=== PATIENT | female | born 1965 | race Caucasian/White ===

== ENCOUNTER 2020-12-10 22:15 | Inpatient (IN) | payer MEDICARE, SELFPAY ==
--- NOTE | ~2020-12-10 | CT_ITS ---
EXAMINATION: CT abdomen pelvis w con DATE: 12/11/2020 00:19 INDICATION: Lower abdominal pain. TECHNIQUE: Computed tomography (CT) of the abdomen and pelvis was performed with 100 mL Omnipaque 350 intravenous contrast. Automated exposure control and iterative reconstruction technique were employe d. The dose-length product was 1430.94 mGy-cm. COMPARISON: CT abdomen and pelvis 07/29/2016 FINDINGS: The visualized portions of the lung bases demonstrate a 3 mm nodule in right middle lobe, l ikely benign. No pleural effusion. The heart size is normal. No pericardial effusion. There is diffus e hepatic steatosis. The gallbladder, spleen, pancreas, and adrenal glands are normal. There is a 1.5 cm cyst in left kidney. There is a 3 mm stone in right kidney. There are 6 mm and 3 mm stones in lef t kidney. There are scattered diverticula in the colon. There is fat stranding around a diverticulum of sigmoid colon with local bowel wall thickening and small intramural abscess, consistent with diver ticulitis. There are no dilated loops of bowel. The appendix is visualized. There are no pathological ly enlarged lymph nodes. There is no free intraperitoneal fluid. There is moderate lower lumbar spond ylosis. IMPRESSION: 1. Acute sigmoid diverticulitis with small intramural abscess that is too small for drainage. No perf oration. 2. Bilateral nonobstructing kidney stones. Reviewed, dictated and finalized at location A. IMPRESSION: 1. Acute sigmoid diverticulitis with small intramural abscess that is too small for drainage. No perforation. 2. Bilateral nonobstructing kidney stones.
[2020-12-10 22:18] VITALS: BP 146/83; PULSE 101; RESP 16; TEMP 36.4; O2SAT 99
[2020-12-10 22:37] LABS: Basophils Absolute Auto 0.1 K/mm3 (0.0-0.1); Basophils Percent Auto 0.8 % (0.2-1.2); Eosinophils Absolute Auto 0.3 K/mm3 (0-0.3); Eosinophils Percent Auto 2.3 % (0-4.4); Hematocrit 45.7 % (37.0-47.0); Hemoglobin 15.3 g/dL (12.0-15.0); Immature Granulocyte Absolute 0.54 K/mm3 (0.00-0.031); Immature Granulocyte Percent A 4.1 % (0-0.5); Lymphocytes Absolute Auto 0.44 K/mm3 (0.9-3.2); Lymphocytes Percent Auto 3.3 % (18.3-44.2); Mean Corpuscular HGB Conc 33.5 g/dl (32-36); Mean Corpuscular Hemoglobin 32.4 pg (26-34); Mean Corpuscular Volume 96.8 fl (80-100); Mean Platelet Volume 10.3 fl (7.4-10.4); Monocytes Absolute Auto 1.3 K/mm3 (0.1-0.6); Monocytes Percent Auto 10.1 % (2.6-8.5); Neutrophils Absolute Auto 10.6 K/mm3 (1.3-6.7); Neutrophils Percent Auto 79.4 % (45.5-73.1); Platelet Count Result 362 k/mm3 (150-375); Red Blood Count 4.72 M/mm3 (4.2-5.4); Red Cell Distribution Width 12.6 % (11.5-14.5); White Blood Count 13.3 K/mm3 (4.5-10.0)
[2020-12-10 22:42] LABS: Add Urine Microscopic? YES; Appearance Urine Cloudy (Clear); Bacteria Urine 2+ /hpf; Bilirubin Urine Negative (Negative); Blood Urine 3+ (Negative); Color Urine Yellow (Yellow); Glucose Urine UA Negative (Negative); Ketones Urine Negative (Negative); Leukocyte Esterase Ur Trace LEU/UL (Negative); Mucus Urine Rare /lpf; Nitrate Urine Negative (Negative); Protein Urine 1+ mg/dL (Negative); RBC Urine >75 /hpf (0-2); Specific Grav Ur 1.012 (1.001-1.035); Squamous Epithelial Cell Urine Few /hpf (Few); Urobilinogen Urine Negative mg/dL (<2.0)
[2020-12-10 22:50] LABS: Alanine Aminotransferase 56 U/L (4-35); Albumin Level 4.5 g/dL (3.5-5.1); Alkaline Phosphatase 106 U/L (38-126); Anion Gap 7 mmol/L (8-16); Aspartate Amino Transferase 49 U/L (14-36); Bilirubin,Total 0.5 mg/dL (0.2-1.3); Blood Urea Nitrogen 15 mg/dL (7-17); Calcium 10.1 mg/dL (8.4-10.2); Carbon Dioxide 33 mmol/L (22-30); Chloride 99 mmol/L (98-107); Estimated CRCL calculation 88 ml/min; Estimated Glomerular Filt Rate > 60; Glucose 132 mg/dL (65-105); Lipase 49 U/L (23-300); Potassium 3.7 mmol/L (3.4-5.0); Sodium 139 mmol/L (137-145)
[2020-12-10 23:58] VITALS: BP 152/99; PULSE 88; RESP 16; O2SAT 100
[2020-12-11] VITALS (9 sets, daily range): BP systolic 117–167; BP diastolic 50–80; PULSE 76–94; RESP 16–20; TEMP 35.5–36.2; O2SAT 93–98; BMI 50.3
--- NOTE | 2020-12-11 00:03 | ED.GENADULT ---
HPI - General Adult General Chief complaint: Abdominal Pain Stated complaint: LOWER ABD PAIN Time Seen by Provider: 12/10/20 23:34 History of Present Illness HPI narrative: Patient is a 54-year-old female who presents ER with lower abdominal pain. Intermittent over the last week. Associated with urinary frequency and discolored urine that is foul smelling. Also reports that she became constipated and took some stool softener. No diarrhea. No fevers or chills or sweats. Has not found any aggravating or alleviating factors. She did try cranberry juice. Reports she cannot reproduce the pain however when it comes on its very uncomfortable. Related Data Allergies Allergy/AdvReac Type Severity Reaction Status Date / Time Penicillins Allergy Mild TAPE Verified 12/10/20 22:16 plastic tape AdvReac Rash Uncoded 12/10/20 22:16 Review of Systems Review of Systems: All systems reviewed & are unremarkable except as noted in HPI and below Constitutional: Constitutional: Denies chills, Denies fever(s) and Denies weakness Cardiovascular: Cardiovascular: Denies chest pain and Denies rapid heart rate Respiratory: Respiratory: Denies cough and Denies dyspnea Gastrointestinal: Gastrointestinal: Reports abdominal pain, Denies bloating, Reports constipation, Denies nausea and Denies vomiting Genitourinary: Genitourinary: Reports hematuria, Reports nocturia, Denies dysuria and Denies flank pain PMFSH Past Medical History Medical History (Updated 12/11/20 @ 06:04 by Alpesh Morocho MD) Anxiety Diverticulitis (~2016) Endometriosis Migraines Multiple sclerosis Obesity Obstructive sleep apnea Transaminitis Chronic--suspected due to hepatic steatosis Urge urinary incontinence Surgical History Surgical History (Updated 12/11/20 @ 04:14 by Myrna Navarrete DO) History of appendectomy History of bilateral carpal tunnel release History of colonoscopy History of tubal ligation (09/17/03) S/P laparoscopic procedure (~2000) Endometriosis Social History Social History Smoking packs per day: 0.5 Smoking cigarettes per day: 10.0 Years smoked: 30 Smoking pack-years: 15.00 Smoking status: Current every day smoker Tobacco type: cigarettes Alcohol intake: never Substance use: never Gender identity (if verbalized by the patient): Female Spiritual care concerns: No Exam Narrative: Exam Narrative: GENERAL: Well-appearing, well-nourished, and in no acute distress. HEAD: Normocephalic, atraumatic. CHEST: Clear to auscultation. No respiratory distress. HEART: Regular rate and rhythm. Normal peripheral pulses. ABDOMEN: Soft, tenderness bilateral lower quadrants with guarding, nondistended, normal active bowel sounds. EXTREMITIES: Normal range of motion. No edema. SKIN: Warm, dry, no rash. NEURO: Alert and oriented x3. PSYCH: Normal mood and affect. Course Course Emergency Course: Admit to hospitalist service. General surgery consulted. Cipro/Flagyl IV. Vital Signs Vital signs: Vital Signs Temperature 97.5 F L 12/10/20 22:18 Pulse Rate 101 H 12/10/20 22:18 Respiratory Rate 16 12/10/20 22:18 Blood Pressure 146/83 H 12/10/20 22:18 Pulse Oximetry 99 12/10/20 22:18 Temperature 96.7 F L 12/11/20 03:13 Pulse Rate 94 12/11/20 03:13 Respiratory Rate 16 12/11/20 03:13 Blood Pressure 149/80 H 12/11/20 03:13 Pulse Oximetry 97 12/11/20 03:13 Medical Decision Making Vital Signs Vital Signs: Vital Signs Temperature 97.5 F L 12/10/20 22:18 Pulse Rate 101 H 12/10/20 22:18 Respiratory Rate 16 12/10/20 22:18 Blood Pressure 146/83 H 12/10/20 22:18 Pulse Oximetry 99 12/10/20 22:18 Temperature 96.7 F L 12/11/20 03:13 Pulse Rate 94 12/11/20 03:13 Respiratory Rate 16 12/11/20 03:13 Blood Pressure 149/80 H 12/11/20 03:13 Pulse Oximetry 97 12/11/20 03:13 Lab Data Result diagrams: 12/10/20 22:2
[2020-12-11] MEDS: metroNIDAZOLE 500 MG/ISO 100ML 500 MG/100 ML BAG 100 MG IVPB ×3 (01:36→17:33)
[2020-12-11] MEDS: MORPHINE SULFATE (*CRX) 4 MG/ML INJ IV PUSH (02:00)
[2020-12-11] MEDS: CIPROFLOXACIN 400 MG/D5W 200ML 200 ML 200 MG IVPB ×2 (02:42→15:57)
--- NOTE | 2020-12-11 03:29 | ADMGEN ---
This patient, Therese Chan, was admitted to 3 Med Surg Room 322-01. Patient/family oriented to hospital policies and general routines including ID bracelet, bed and alarms, visiting hours, pain management, procedures, bathroom and other care routines, personal items, smoking policy, room service/diet, and visiting hours. Information on how to activate the Rapid Response Team has been discussed. Patient/Family are encouraged to report perceived risks to care and to ask questions if they do not understand what they are told or what they should do.
--- NOTE | 2020-12-11 04:06 | PM.IMHP ---
H&P: HPI History of Present Illness Date/Time: 12/11/20 04:06 Chief Complaint: Abdominal pain Narrative: 54-year-old female with a past medical history of MS trauma diverticulosis, obstructive sleep apnea and chronic pain who presented to the ER due to intermittent abdominal pain for 1 week. The patient reports that the abdominal pain was crampy in nature and loaded gated in the lower quadrants. The abdominal pain was at the midline into the left for the most part. Pain was not 8 or 9/10 in intensity at its worst. She would have periods of time where she would have no pain at all. She initially had some darker urine for the 1st few days of her abdominal symptoms and thought she may have a UTI so she tried drinking some cranberry juice. Her urine color improved however her abdominal pain continued. She reported that her urine was initially foul-smelling without also improved after cranberry juice. She has chronic urinary frequency due to urge urinary incontinence. Then 3 days ago the patient went from having normal bowel movements to not having any bowel movements whatsoever. Her abdominal pain seemed to increase at that time. She did not notice her abdominal pain getting worse with eating. She denies having fevers or chills. She has not had any hematochezia or melena. She did have a history of diverticulitis in 2014 at which time she had a colonoscopy performed at [facility] which the gastroenterologists told her that there is no evidence of diverticulitis at that time. However her colonoscopy was couple of weeks after she had already been treated for diverticulitis. She denies any nausea or vomiting. Her appetite has been stable. She has obstructive sleep apnea but is not always adherent to her CPAP therapy. She denies any alcohol use or abuse. She reports chronic memory problems due to her multiple sclerosis. Review of Systems Review of Systems: Narrative: 12 systems were reviewed with pertinent positives and negatives per HPI. Except as documented in the HPI, all other systems were reviewed and are negative. [facility] Past Medical History Medical History (Updated 12/11/20 @ 06:23 by Myrna Navarrete DO) Anxiety Diverticulitis (~2016) Endometriosis Migraines Multiple sclerosis (~2004) Obesity Obstructive sleep apnea Intermittent CPAP use Transaminitis Chronic--suspected due to hepatic steatosis Urge urinary incontinence Surgical History Surgical History (Updated 12/11/20 @ 04:14 by Myrna Navarrete DO) History of appendectomy History of bilateral carpal tunnel release History of colonoscopy History of tubal ligation (09/17/03) S/P laparoscopic procedure (~2000) Endometriosis Family History Family History (Updated 12/11/20 @ 06:07 by Myrna Navarrete DO) Mother Patient's mother is in good health 75 years old Father Heart transplant recipient Social History Social History (Updated 12/11/20 @ 06:10 by Myrna Navarrete DO) Social History: Her of 22 years. She does not have any children. 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 She continues to smoke a half a pack of cigarettes per day. She started smoking in her late teens or early 20s. She denies any alcohol use or illicit substance use. She currently does not have a primary care physician. She reports that she is no longer seeing Dr. Ku. Code status: Full code Surrogate decision maker: Naren () Smoking packs per day: 0.5 Smoking cigarettes per day: 10.0 Years smoked: 30 Smoking pack-years: 15.00 Smoking status: Current every day smoker Tobacco type: cigarettes Alcohol intake: never Substance use: never Gender identity (if verbalized by the patient): Female Spiritual care concerns: No Meds Home Medications and Allergies Home Medications Medication Instructions Recorded Confirmed Type Tracy
[2020-12-11] MEDS: SODIUM CHLORIDE 0.9% IV 1,000 ML 125 ML IV CONT ×2 (04:31→17:33)
[2020-12-11] MEDS: ENOXAPARIN 40 MG/0.4 ML SYRINGE SUB-Q (08:16)
--- NOTE | 2020-12-11 08:43 | PM.IMPN ---
Progress Note: A&P Assessment and Plan (1) Acute diverticulitis: Code(s): K57.92 - Diverticulitis of intestine, part unspecified, without perforation or abscess without bleeding Status: Acute Assessment and Plan: -Preliminary CT reading with inflammatory change concerning for acute diverticulitis. There is a 2.5 cm irregular area of hypoattenuation in the wall of the sigmoid colon which is concerning for abscess. No free air -will continue Cipro and Flagyl -surgery has been consulted for possible abscess. Await their recommendations -advance diet as tolerated, will wait to see surgeries recommendations before this is placed. -will add Bentyl for abdominal cramping -of note, patient has been told she has had diverticulitis in the past but at that time underwent a colonoscopy and diverticula were reportedly not seen. Will need to follow-up with GI outpatient (2) Obstructive sleep apnea on CPAP: Code(s): G47.33 - Obstructive sleep apnea (adult) (pediatric); Z99.89 - Dependence on other enabling machines and devices Status: Acute Assessment and Plan: The patient is not interested in using CPAP at this time. -She may bring her home CPAP in if she so desires. (3) Hematuria: Code(s): R31.9 - Hematuria, unspecified Status: Acute Assessment and Plan: Noted on UA on admission -patient has been having darker urine in the last week -could be due to acute illness -follow-up with primary care physician for repeat UA after acute illness has improved. If she continues to have hematuria she should see a urologist (4) Multiple sclerosis: Onset Date: ~2004 Code(s): G35 - Multiple sclerosis Status: Acute Assessment and Plan: Chronic and stable -continue home medications (5) Transaminitis: Code(s): R74.01 - Elevation of levels of liver transaminase levels Status: Acute Assessment and Plan: Mildly elevated and appear chronic as far back as 2017 -CT in 2017 showed fatty liver. -encourage weight loss, check A1c Time Spent With Patient Time with patient: 25 - 35 minutes Subjective Date/time seen: 12/11/20 08:43 Interval history: Pt is a 54-year-old female here for diverticulitis with abscess. Patient was seen today and states she continues to have abdominal pain. It is intermittent in nature and she has had 2 spasms this morning. She says the pain is worse in her bilateral lower quadrants. She has not had any diarrhea or bowel movement in 3 days. She has had no nausea vomiting but has not eaten anything. She denies chest pain, shortness of breath, fevers, chills or leg swelling. She says her MS is pretty well controlled with her home medication. Review of Systems Review of Systems: All systems reviewed & are unremarkable except as noted in HPI and below Exam Narrative: Exam Narrative: General: Overweight patient resting comfortably in bed in no acute distress HEENT: normocephalic Neck: supple Neuro: Alert and oriented x4 CV:RRR no murmurs Resp:CTA, no crackles, rhonchi or wheezing Abd: Soft, non distended. Pain to palpation to the abdomen mostly in the lower quadrants. Positive bowel sounds Extremities: No swelling, erythema, or pain to palpation. Objective Data Vital Signs Vital Signs: Vital Signs - 24 hr 12/10/20 22:18 12/10/20 23:58 12/11/20 01:05 Temperature 97.5 F L Pulse Rate 101 H 88 80 Respiratory Rate 16 16 18 Blood Pressure 146/83 H 152/99 H 139/79 Pulse Oximetry 99 100 98 12/11/20 02:42 12/11/20 03:13 12/11/20 06:00 Temperature 96.7 F L 97.2 F L Pulse Rate 83 94 79 Respiratory Rate 18 16 16 Blood Pressure 167/50 H 149/80 H 130/65 Pulse Oximetry 96 97 93 12/11/20 08:34 Temperature Pulse Rate Respiratory Rate Blood Pressure Pulse Oximetry 93 Intake/Output Intake/Output: Intake & Output 12/08/20 12/09/20 12/10/20 12/11/20 23:59 23:59 23:59 23:59 In
--- NOTE | 2020-12-11 12:17 | PM.CNGS ---
Assessment and Plan Assessment and plan (1) Diverticulitis of intestine with abscess: Code(s): K57.80 - Diverticulitis of intestine, part unspecified, with perforation and abscess without bleeding Status: Acute Assessment and Plan: cont conservative mgmt c IV abx, no drainable collection of CT as abscess is quite small, cont serial exams, clears History of Present Illness Consult details Consult date: 12/11/20 Reason for consult: abdominal pain Requesting physician: Tina Melendez PA-C Narrative: Pt is a 54 y/o F presenting to ED c/o severe LLQ abd pain over last 5 days. Pt reports pain is progressively worse, rating 8 of 10 when severe. Pt reports pain is sharp, stabbing in nature. Pt reports associated constipation. Pt denies any f/c, N/V. Pt reports poor appetite during this episode. Pt reports she was seen in ED approx 4 yrs ago and dx'd c diverticulitis, but did not require hospitalization. Pt reports at least 1 episode in the interim that she managed conservatively at home. Review of Systems Constitutional: Constitutional: Reports anorexia, Denies chills, Reports fatigue, Denies fever(s), Reports lethargy, Reports malaise, Reports poor appetite, Reports weakness, Denies weight gain and Denies weight loss Eyes: Eyes: Reports no additional eye complaints ENT: Reports system reviewed and no additional complaints, except as documented Cardiovascular: Cardiovascular: Reports no additional cardiovascular complaints Respiratory: Respiratory: Reports no additional respiratory complaints Gastrointestinal: Gastrointestinal: Reports as per HPI Genitourinary: Genitourinary: Reports nocturia, Reports dysuria and Reports urinary urgency Musculoskeletal: Musculoskeletal: Reports no additional musculoskeletal complaints Integumentary/Breasts: Skin/Breast: Reports system reviewed and no additional complaints, except as docu Neurologic: Reports system reviewed and no additional complaints, except as documented Psychiatric: Psychiatric: Reports no additional psychiatric complaints Endocrine: Endocrine: Reports no additional endocrine complaints Hematologic/Lymphatic: Hematologic/Lymphatic: Reports no additional hematologic/lymphatic complaints Allergic/Immunologic: Allergic/Immunologic: Reports no additional allergic/immunologic complaints PMFSH Past Medical History Medical History Anxiety Diverticulitis (~2016) Endometriosis Migraines Multiple sclerosis (~2004) Obesity Obstructive sleep apnea Intermittent CPAP use Transaminitis Chronic--suspected due to hepatic steatosis Urge urinary incontinence Surgical History Surgical History History of appendectomy History of bilateral carpal tunnel release History of colonoscopy History of tubal ligation (09/17/03) S/P laparoscopic procedure (~2000) Endometriosis Family History Family History Mother Patient's mother is in good health 75 years old Father Heart transplant recipient Social History Social History Social History: Her of 22 years. She does not have any children. 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 She continues to smoke a half a pack of cigarettes per day. She started smoking in her late teens or early 20s. She denies any alcohol use or illicit substance use. She currently does not have a primary care physician. She reports that she is no longer seeing Dr. Ku. Code status: Full code Surrogate decision maker: Naren () Smoking packs per day: 0.5 Smoking cigarettes per day: 10.0 Years smoked: 30 Smoking pack-years: 15.00 Smoking status: Current every day smoker Tobacco type: cigarettes Alcohol intake: n
[2020-12-12] MEDS: metroNIDAZOLE 500 MG/ISO 100ML 500 MG/100 ML BAG 100 MG IVPB ×3 (00:37→17:07)
[2020-12-12] MEDS: CIPROFLOXACIN 400 MG/D5W 200ML 200 ML 200 MG IVPB ×2 (02:59→13:39)
[2020-12-12 05:50] LABS: Hematocrit 39.8 % (37.0-47.0); Hemoglobin 13.8 g/dL (12.0-15.0); Mean Corpuscular HGB Conc 34.7 g/dl (32-36); Mean Corpuscular Hemoglobin 32.8 pg (26-34); Mean Corpuscular Volume 94.5 fl (80-100); Mean Platelet Volume 10.5 fl (7.4-10.4); Platelet Count Result 316 k/mm3 (150-375); Red Blood Count 4.21 M/mm3 (4.2-5.4); Red Cell Distribution Width 12.6 % (11.5-14.5); White Blood Count 8.1 K/mm3 (4.5-10.0)
[2020-12-12 05:56] LABS: Alanine Aminotransferase 49 U/L (4-35); Albumin Level 3.9 g/dL (3.5-5.1); Alkaline Phosphatase 82 U/L (38-126); Anion Gap 8 mmol/L (8-16); Aspartate Amino Transferase 42 U/L (14-36); Bilirubin,Total 0.4 mg/dL (0.2-1.3); Blood Urea Nitrogen 10 mg/dL (7-17); Calcium 9.2 mg/dL (8.4-10.2); Carbon Dioxide 27 mmol/L (22-30); Chloride 106 mmol/L (98-107); Estimated CRCL calculation 100 ml/min; Estimated Glomerular Filt Rate > 60; Glucose 142 mg/dL (65-105); Potassium 4.1 mmol/L (3.4-5.0); Sodium 141 mmol/L (137-145)
[2020-12-12 06:00] VITALS: BP 107/71; PULSE 73; RESP 16; TEMP 37.7; O2SAT 97
[2020-12-12 06:56] LABS: Hemoglobin A1C 6.7 % (<5.7)
--- NOTE | 2020-12-12 07:22 | PM.PNGS ---
Progress Note: A&P Assessment and Plan (1) Diverticulitis of intestine with abscess: Code(s): K57.80 - Diverticulitis of intestine, part unspecified, with perforation and abscess without bleeding Status: Acute Assessment and Plan: better, cont abx, ADAT to low fiber diet, may need to switch to po abx as having access issues Subjective Subjective Date/Time Seen: 12/12/20 07:23 feels better today, less pain, erick clears Review of Systems Review of Systems: All systems reviewed & are unremarkable except as noted in HPI and below Exam Const: General: cooperative, comfortable and acute distress mild Nutritional Appearance: obese Orientation/consciousness: patient oriented x3 Resp: Effort & Inspection: normal respiratory effort Auscultation: clear to auscultation bilaterally Cardio: Rate: regular rate Rhythm: regular rhythm GI: Inspection: normal to inspection and distended GI Palp: Yes Soft to palpation, Yes Tenderness to palpation present (GI) and No Guarding due to palpation present (GI) Other: soft, sl dist, mod TTP RLQ Objective Data Vital Signs Vital Signs: Vital Signs - 24 hr 12/11/20 08:00 12/11/20 08:34 12/11/20 14:00 Temperature 35.9 C L Pulse Rate 79 80 Respiratory Rate 16 18 Blood Pressure 131/53 L Pulse Oximetry 93 93 95 12/11/20 16:00 12/11/20 22:00 12/12/20 06:00 Temperature 36.1 C L 35.5 C L 37.7 C H Pulse Rate 83 76 73 Respiratory Rate 20 18 16 Blood Pressure 135/67 117/62 107/71 Pulse Oximetry 97 96 97 Intake/Output Intake/Output: Intake & Output 12/09/20 12/10/20 12/11/20 12/12/20 23:59 23:59 23:59 23:59 Intake Total 2420 450 Output Total 600 2300 Balance 1820 -1850 Meds/Results Medications: Active Medications Generic Name Dose Route Start Last Admin Trade Name Freq PRN Reason Stop Dose Admin Dicyclomine HCl 20 mg 12/11/20 08:44 Dicyclomine Hcl 10 Mg Capsule PO QID PRN Abdominal Cramping Duloxetine HCl 60 mg 12/11/20 09:00 Duloxetine Hcl 60 Mg Capsule. PO DAILY RENETTA Enoxaparin Sodium 40 mg 12/11/20 09:00 12/11/20 08:16 Enoxaparin 40 Mg/0.4 Ml Syringe SUB-Q 40 mg DAILY RENETTA Administration Ciprofloxacin/Dextrose 200 mls @ 200 mls/hr 12/11/20 13:00 12/12/20 02:59 Cipro 400 Mg/D5w 200 Ml IVPB 200 mls/hr Q12H RENETTA Administration Metronidazole 500 mg in 100 mls @ 100 mls/hr 12/11/20 08:00 12/12/20 01:37 Flagyl 500 Mg/Iso Soln 100 Ml IVPB Infused Q8H RENETTA Infusion Sodium Chloride 1,000 mls @ 125 mls/hr 12/11/20 01:50 12/11/20 17:33 Normal Saline Iv IV CONT 125 mls/hr .Q8H RENETTA Administration Modafinil 200 mg 12/11/20 09:00 12/11/20 08:15 Modafinil (*Crx) 200 Mg Tablet PO Not Given DAILY [facility] Morphine Sulfate 4 mg 12/11/20 01:46 Morphine Sulfate (*Crx) 4 Mg/Ml Inj IV PUSH Q2H PRN Pain Rated 7-10 Promethazine HCl 12.5 mg 12/11/20 01:46 Promethazine Hcl 25 Mg/Ml Ampul IV PUSH Q6H PRN Nausea Tolterodine Tartrate 4 mg 12/11/20 09:00 12/11/20 08:15 Tolterodine Tartrate La 4 Mg Cap.Er.24h PO Not Given DAILY [facility] Radiology Results: ITS Impressions Abdomen/Pelvis CT 12/11/20 08:52 IMPRESSION: 1. Acute sigmoid diverticulitis with small intramural abscess that is too small for drainage. No perforation. 2. Bilateral nonobstructing kidney stones. Labs Labs: Laboratory Results - last 24 hr 12/12/20 12/12/20 12/12/20 05:31 05:31 05:31 WBC 8.1 RBC 4.21 Hgb 13.8 Hct 39.8 MCV 94.5 MCH 32.8 MCHC 34.7 RDW 12.6 Plt Count 316 MPV 10.5 H Sodium 141 Potassium 4.1 Chloride 106 Carbon Dioxide 27 Anion Gap 8 BUN 10 D Creatinine 0.70 Estim Creat Clear Calc 100 Estimated GFR > 60 Glucose 142 H Hemoglobin A1c 6.7 H Calcium 9.2 Total Bilirubin 0.4 AST 42 H ALT 49 H Alkaline Phosphatase 82 Total Protein 7.0 Albumin 3.9
[2020-12-12 08:00] VITALS: PULSE 73; RESP 16; O2SAT 97
[2020-12-12] MEDS: SODIUM CHLORIDE 0.9% IV 1,000 ML 125 ML IV CONT (08:16)
--- NOTE | 2020-12-12 11:55 | PM.IMPN ---
Progress Note: A&P Assessment and Plan (1) Acute diverticulitis: Code(s): K57.92 - Diverticulitis of intestine, part unspecified, without perforation or abscess without bleeding Status: Acute Assessment and Plan: -CT and symptoms conssitent with acute diverticulitis with abscess. -will continue Cipro and Flagyl -surgery consulted, continue conservative tx -advance diet as tolerated, low fiber for dinner -continue Bentyl for abdominal cramping -of note, patient has been told she has had diverticulitis in the past but at that time underwent a colonoscopy and diverticula were reportedly not seen. Will need to follow-up with GI outpatient (2) Obstructive sleep apnea on CPAP: Code(s): G47.33 - Obstructive sleep apnea (adult) (pediatric); Z99.89 - Dependence on other enabling machines and devices Status: Acute Assessment and Plan: The patient is not interested in using CPAP at this time. -She may bring her home CPAP in if she so desires. (3) Hematuria: Code(s): R31.9 - Hematuria, unspecified Status: Acute Assessment and Plan: Noted on UA on admission -patient has been having darker urine in the last week -could be due to acute illness -follow-up with primary care physician for repeat UA after acute illness has improved. If she continues to have hematuria she should see a urologist (4) Multiple sclerosis: Onset Date: ~2004 Code(s): G35 - Multiple sclerosis Status: Acute Assessment and Plan: Chronic and stable -continue home medications (5) Transaminitis: Code(s): R74.01 - Elevation of levels of liver transaminase levels Status: Acute Assessment and Plan: Mildly elevated and appear chronic as far back as 2017 -CT in 2017 showed fatty liver. -encourage weight loss (6) Diabetes mellitus, new onset: Code(s): E11.9 - Type 2 diabetes mellitus without complications Status: Acute Assessment and Plan: A1c 6.7--consistent with DM -Pt states she eats a lot of pasta and very few vegetables -She has a huge fear of needles (and even changed her MS tx to avoid needles). At this time I do not feel the need to do ACHS accuchecks since she is not on any glucose lowering medications and she gets a daily BMP. Will add a diabetic diet -Pt was given glucose meter and education -Plan to start metformin outpt but might wait about 2 weeks due to it causing diarrhea on top of her diverticulitis -will need to f/u with pcp about this, I answered all of her questions Subjective Date/time seen: 12/12/20 11:55 Interval history: Pt is a 54-year-old female here for diverticulitis with abscess. Patient was seen today and states she continues to have abdominal pain cramps occasionally. It is intermittent in nature and she has had 2 spasms this morning. She says the pain is worse in her RLQ. She had a small formed BM today. She has had no nausea vomiting with eating.. She denies chest pain, shortness of breath, fevers, chills or leg swelling. She says her MS is pretty well controlled with her home medication. She had no hx of diabetes. Exam Narrative: Exam Narrative: General: Overweight patient resting comfortably in bed in no acute distress HEENT: normocephalic Neck: supple Neuro: Alert and oriented x4 CV:RRR no murmurs Resp:CTA, no crackles, rhonchi or wheezing Abd: Soft, non distended. Pain to palpation to the abdomen mostly in the lower quadrants. Positive bowel sounds Extremities: No swelling, erythema, or pain to palpation. Objective Data Vital Signs Vital Signs: Vital Signs - 24 hr 12/11/20 14:00 12/11/20 16:00 12/11/20 22:00 Temperature 96.7 F L 96.9 F L 96 F L Pulse Rate 80 83 76 Respiratory Rate 18 20 18 Blood Pressure 131/53 L 135/67 117/62 Pulse Oximetry 95 97 96 12/12/20 06:00 Temperature 99.8 F H Pulse Rate 73 Respiratory Rate 16 Blood Pressure 107/71 Pulse Oximetry 9
[2020-12-12 12:24] LABS: Glucose Point of Care 75 mg/dl (65-105)
[2020-12-12 14:00] VITALS: BP 132/87; PULSE 81; RESP 14; TEMP 37.3; O2SAT 99
[2020-12-12 21:15] VITALS: BP 117/50; PULSE 82; RESP 18; TEMP 37.1; O2SAT 94
[2020-12-12 23:57] VITALS: BP 122/53; PULSE 76; RESP 18; TEMP 36.4; O2SAT 96
[2020-12-13] MEDS: metroNIDAZOLE 500 MG/ISO 100ML 500 MG/100 ML BAG 100 MG IVPB (00:45)
[2020-12-13] MEDS: CIPROFLOXACIN 400 MG/D5W 200ML 200 ML 200 MG IVPB (01:51)
[2020-12-13 05:34] VITALS: BP 108/46; PULSE 72; RESP 18; TEMP 36.1; O2SAT 97
[2020-12-13 06:13] LABS: Basophils Absolute Auto 0.1 K/mm3 (0.0-0.1); Eosinophils Absolute Auto 0.3 K/mm3 (0-0.3); Hematocrit 39.8 % (37.0-47.0); Hemoglobin 13.3 g/dL (12.0-15.0); Immature Granulocyte Percent A 4.2 % (0-0.5); Lymphocytes Absolute Auto 0.28 K/mm3 (0.9-3.2); Lymphocytes Percent Auto 3.9 % (18.3-44.2); Mean Corpuscular HGB Conc 33.4 g/dl (32-36); Mean Corpuscular Hemoglobin 31.7 pg (26-34); Mean Corpuscular Volume 94.8 fl (80-100); Mean Platelet Volume 10.6 fl (7.4-10.4); Monocytes Absolute Auto 0.9 K/mm3 (0.1-0.6); Monocytes Percent Auto 12.5 % (2.6-8.5); Neutrophils Absolute Auto 5.4 K/mm3 (1.3-6.7); Neutrophils Percent Auto 74.4 % (45.5-73.1); Platelet Count Result 322 k/mm3 (150-375); Red Cell Distribution Width 12.5 % (11.5-14.5); White Blood Count 7.2 K/mm3 (4.5-10.0)
[2020-12-13 06:31] LABS: Alanine Aminotransferase 49 U/L (4-35); Albumin Level 3.8 g/dL (3.5-5.1); Alkaline Phosphatase 84 U/L (38-126); Anion Gap 7 mmol/L (8-16); Aspartate Amino Transferase 47 U/L (14-36); Bilirubin,Total 0.4 mg/dL (0.2-1.3); Blood Urea Nitrogen 12 mg/dL (7-17); Calcium 9.5 mg/dL (8.4-10.2); Carbon Dioxide 27 mmol/L (22-30); Chloride 106 mmol/L (98-107); Estimated CRCL calculation 88 ml/min; Estimated Glomerular Filt Rate > 60; Glucose 139 mg/dL (65-105); Potassium 4.1 mmol/L (3.4-5.0); Sodium 140 mmol/L (137-145)
--- NOTE | 2020-12-13 10:12 | PM.DS ---
DS: Admitting Diagnosis Admitting Diagnosis Admitting Diagnosis: diverticulitis with abscess DS: Discharge Diagnosis Discharge Diagnosis (1) Acute diverticulitis: Code(s): K57.92 - Diverticulitis of intestine, part unspecified, without perforation or abscess without bleeding Status: Acute Assessment and Plan: -CT and symptoms conssitent with acute diverticulitis with abscess. -pt tolerating a low fiber diet day of discharge -will continue Cipro and Flagyl for an additional 7 days -surgery consulted, will follow up in 2 weeks. -of note, patient has been told she has had diverticulitis in the past but at that time underwent a colonoscopy and diverticula were reportedly not seen. Will need to follow-up with GI outpatient (2) Obstructive sleep apnea on CPAP: Code(s): G47.33 - Obstructive sleep apnea (adult) (pediatric); Z99.89 - Dependence on other enabling machines and devices Status: Acute Assessment and Plan: continue cpap (3) Hematuria: Code(s): R31.9 - Hematuria, unspecified Status: Acute Assessment and Plan: Noted on UA on admission -patient has been having darker urine in the last week -could be due to acute illness -follow-up with primary care physician for repeat UA after acute illness has improved. If she continues to have hematuria she should see a urologist (4) Multiple sclerosis: Onset Date: ~2004 Code(s): G35 - Multiple sclerosis Status: Acute Assessment and Plan: Chronic and stable -continue home medications (5) Transaminitis: Code(s): R74.01 - Elevation of levels of liver transaminase levels Status: Acute Assessment and Plan: Mildly elevated and appear chronic as far back as 2017 -CT in 2017 showed fatty liver. -encourage weight loss (6) Diabetes mellitus, new onset: Code(s): E11.9 - Type 2 diabetes mellitus without complications Status: Acute Assessment and Plan: A1c 6.7--consistent with DM -Pt states she eats a lot of pasta and very few vegetables -She has a huge fear of needles (and even changed her MS tx to avoid needles) -Pt was given glucose meter and education -Plan to start metformin outpt but might wait about 2 weeks due to it causing diarrhea on top of her diverticulitis -will need to f/u with pcp about this, I answered all of her questions DS: Summary Hospital Course Hospital Course: Patient is a 54-year-old female with a past medical history of MS who presented to the emergency room for lower abdominal pain that was intermittent over the last week as well as urinary frequency. Vitals in the ER were temperature 97.5?, pulse 101, respiratory rate 16, blood pressure 146/83, pulse 99 on room air. Initial white blood cell count 13.3, hemoglobin 15.3, hematocrit 45.7, platelets 362. BMP just showed a slightly elevated glucose 132. UA showed hematuria but few white blood cells and 2+ bacteria. CT of the abdomen pelvis revealed acute sigmoid diverticulitis with an intramural abscess to small for drainage as well as bilateral nonobstructing kidney stones. Patient was started on Cipro and Flagyl IV and is admitted to the hospitalist service. The patient's pain improved with IV antibiotics and adjustments in her diet. The day of discharge she was eating and drinking a low-fiber diet without any pain. As for her UA, I suggest that she follow-up with her primary care physician to obtain another UA since she had a good amount hematuria. This is likely due to acute illness but if it is persistent, she will need to follow-up with a urologist. While she was here, she had persistently elevated glucoses in an A1c was drawn which was 6.7. She had no history of diabetes and was surprised by this information. I talked to her extensively about dietary changes and checking her glucose. The patient has an extreme phobia of needles and does not think that she can check her gluco
--- NOTE | 2020-12-13 10:36 | PM.PNGS ---
Progress Note: A&P Assessment and Plan (1) Diverticulitis of intestine with abscess: Code(s): K57.80 - Diverticulitis of intestine, part unspecified, with perforation and abscess without bleeding Status: Acute Assessment and Plan: much improved, home c po abx and low fiber diet, f/u 2 wks Subjective Subjective Date/Time Seen: 12/13/20 10:36 feels much better, little to no pain, erick low fiber diet Review of Systems Review of Systems: All systems reviewed & are unremarkable except as noted in HPI and below Exam Const: General: cooperative and comfortable Orientation/consciousness: patient oriented x3 Resp: Auscultation: clear to auscultation bilaterally Cardio: Rate: regular rate Rhythm: regular rhythm GI: Inspection: normal to inspection and non-distended GI Palp: Yes Soft to palpation, No Tenderness to palpation present (GI) and No Guarding due to palpation present (GI) Objective Data Vital Signs Vital Signs: Vital Signs - 24 hr 12/12/20 14:00 12/12/20 21:15 12/12/20 23:57 Temperature 37.3 C 37.1 C 36.4 C L Pulse Rate 81 82 76 Respiratory Rate 14 18 18 Blood Pressure 132/87 117/50 L 122/53 L Pulse Oximetry 99 94 96 12/13/20 05:34 Temperature 36.1 C L Pulse Rate 72 Respiratory Rate 18 Blood Pressure 108/46 L Pulse Oximetry 97 Intake/Output Intake/Output: Intake & Output 12/10/20 12/11/20 12/12/20 12/13/20 23:59 23:59 23:59 23:59 Intake Total 2420 4360 1390 Output Total 600 3300 850 Balance 1820 1060 540 Meds/Results Medications: Active Medications Generic Name Dose Route Start Last Admin Trade Name Freq PRN Reason Stop Dose Admin Dicyclomine HCl 20 mg 12/11/20 08:44 Dicyclomine Hcl 10 Mg Capsule PO QID PRN Abdominal Cramping Duloxetine HCl 60 mg 12/11/20 09:00 Duloxetine Hcl 60 Mg Capsule.Dr PO DAILY RENETTA Enoxaparin Sodium 40 mg 12/11/20 09:00 12/13/20 09:28 Enoxaparin 40 Mg/0.4 Ml Syringe SUB-Q Not Given DAILY RENETTA Ciprofloxacin/Dextrose 200 mls @ 200 mls/hr 12/11/20 13:00 12/13/20 02:51 Cipro 400 Mg/D5w 200 Ml IVPB Infused Q12H [facility] Infusion Metronidazole 500 mg in 100 mls @ 100 mls/hr 12/11/20 08:00 12/13/20 09:27 Flagyl 500 Mg/Iso Soln 100 Ml IVPB Not Given Q8H RENETTA Modafinil 200 mg 12/11/20 09:00 12/13/20 09:27 Modafinil (*Crx) 200 Mg Tablet PO Not Given DAILY RENETTA Morphine Sulfate 4 mg 12/11/20 01:46 Morphine Sulfate (*Crx) 4 Mg/Ml Inj IV PUSH Q2H PRN Pain Rated 7-10 Promethazine HCl 12.5 mg 12/11/20 01:46 Promethazine Hcl 25 Mg/Ml Ampul IV PUSH Q6H PRN Nausea Tolterodine Tartrate 4 mg 12/11/20 09:00 12/13/20 09:28 Tolterodine Tartrate La 4 Mg Cap.Er.24h PO Not Given DAILY [facility] Radiology Results: ITS Impressions Abdomen/Pelvis CT 12/11/20 08:52 IMPRESSION: 1. Acute sigmoid diverticulitis with small intramural abscess that is too small for drainage. No perforation. 2. Bilateral nonobstructing kidney stones. Labs Labs: Laboratory Results - last 24 hr 12/12/20 12/13/20 12/13/20 12:14 05:53 05:53 WBC 7.2 RBC 4.20 Hgb 13.3 Hct 39.8 MCV 94.8 MCH 31.7 MCHC 33.4 RDW 12.5 Plt Count 322 MPV 10.6 H Immature Gran % (Auto) 4.2 H Neut % (Auto) 74.4 H Lymph % (Auto) 3.9 L [place] % (Auto) 12.5 H Eos % (Auto) 4.0 Baso % (Auto) 1.0 Lymph # (Auto) 0.28 L [place] # (Auto) 0.9 H Eos # (Auto) 0.3 Baso # (Auto) 0.1 Abs Immat Gran (auto) 0.30 H Absolute Neuts (auto) 5.4 Absolute Nucleated RBC 0.0 Nucleated RBC % 0.0 Sodium 140 Potassium 4.1 Chloride 106 Carbon Dioxide 27 Anion Gap 7 L BUN 12 Creatinine 0.80 Estim Creat Clear Calc 88 Estimated GFR > 60 Glucose 139 H POC Capillary Glucose 75 Calcium 9.5 Total Bilirubin 0.4 Direct Bilirubin 0.0 AST 47 H ALT 49 H Alkaline Phosphatase 84 Total Protein
--- NOTE | 2020-12-20 13:08 | PC.NURSE ---
Blood cx are negative.
== END 2020-12-13 11:35 | disposition home or self-care (01) | DRG 392 ==
LOC: ANHED 12-11 01:56 → ANH3MEDSUR 12-11 02:55
PROVIDERS: Physician Assistant; Admitting Provider Internal Medicine; Emergency Provider Emergency Medicine; Visit Provider Family Medicine
DX: K57.20 Diverticulitis of large intestine with perforation and abscess without bleeding (principal); Z68.43 Body mass index [BMI] 50.0-59.9, adult; F41.9 Anxiety disorder, unspecified; G35 Multiple sclerosis; E66.9 Obesity, unspecified; G47.33 Obstructive sleep apnea (adult) (pediatric); E11.9 Type 2 diabetes mellitus without complications; Z79.84 Long term (current) use of oral hypoglycemic drugs; K76.0 Fatty (change of) liver, not elsewhere classified; N39.41 Urge incontinence; F17.210 Nicotine dependence, cigarettes, uncomplicated; G89.29 Other chronic pain; R35.0 Frequency of micturition; R41.3 Other amnesia; Z99.89 Dependence on other enabling machines and devices; R31.9 Hematuria, unspecified; R74.01 Elevation of levels of liver transaminase levels; K59.00 Constipation, unspecified
CPT/HCPCS: 36415; 74177; 80048; 80053; 80076; 81001; 82948; 83036; 83690; 85025; 85027; 87040; 96361; 96374; 96375; 99285; G0378; J0131; J0744; J1650; J2270; J7030; Q9967

== ENCOUNTER 2022-01-06 08:09 | Day surgery (SDC) | payer MEDICARE, SELFPAY ==
[2022-01-06] VITALS (16 sets, daily range): BP systolic 127–176; BP diastolic 58–110; PULSE 90–102; RESP 12–20; TEMP 36.2–37.3; O2SAT 94–100
--- NOTE | ~2022-01-06 | XR_ITS ---
EXAMINATION: XR retrograde pyelo w/stent LT DATE: 01/06/2022 15:22 INDICATION: Left ureteral stent placement TECHNIQUE: 6 fluoroscopic spot images of the abdomen and pelvis were obtained during procedure perfor med by Dr. Otero. Radiologist was not present for the imaging or procedure. The amount of fluoro scopy time used during this procedure was 1.2 minutes. COMPARISON: None. FINDINGS: Images demonstrate retrograde cannulation and contrast injection into the left ureter which demonstra jhoana persistent mild left hydronephrosis. Subsequent images demonstrate placement of a left internal u reteral stent with proximal tip obscured by contrast in the left renal pelvis and with distal loop fo rmed in the bladder. IMPRESSION: 1. Mild left hydronephrosis with placement of a left internal ureteral stent in expected position. Se ingris procedure note for further detail. Reviewed, dictated and finalized at location B. IMPRESSION: 1. Mild left hydronephrosis with placement of a left internal ureteral stent in expected position. See procedure note for further detail.
--- NOTE | ~2022-01-06 | CT_ITS ---
EXAMINATION: CT abdomen pelvis w con DATE: 01/06/2022 08:59 INDICATION: Left lower quadrant abdominal pain. TECHNIQUE: Computed tomography (CT) of the abdomen and pelvis was performed with 100 mL Omnipaque 300 intravenous contrast. Automated exposure control and iterative reconstruction technique were employe d. The dose-length product was 1494.68 mGy-cm. COMPARISON: CT abdomen and pelvis 12/10/2020 FINDINGS: The visualized portions of the lung bases demonstrate mild atelectasis. No pleural effusion . The heart size is normal. No pericardial effusion. There is diffuse hepatic steatosis. The gallblad pete, spleen, pancreas, adrenal glands, and right kidney are normal. There is a 17 mm cyst in left kid sarah. There is a decreased and delayed left-sided contrast nephrogram. There is a 5 mm stone in left k idney. There is moderate left hydronephrosis. There is an 8 mm stone in proximal left ureter. There i s diverticulosis of the colon without evidence of diverticulitis. There are no dilated loops of bowel . The appendix is not visualized. There are no pathologically enlarged lymph nodes. There is no free intraperitoneal fluid. There is mild thoracic spondylosis and moderate lumbar spondylosis. IMPRESSION: 1. 8 mm stone in proximal left ureter with moderate left hydronephrosis. 2. 5 mm nonobstructing left kidney stone. Reviewed, dictated and finalized at location A.
[2022-01-06 08:29] LABS: Basophils Absolute Auto 0.1 K/mm3 (0.0-0.1); Basophils Percent Auto 0.7 % (0.2-1.2); Eosinophils Absolute Auto 0.5 K/mm3 (0-0.3); Eosinophils Percent Auto 3.1 % (0-4.4); Hematocrit 43.1 % (37.0-47.0); Immature Granulocyte Absolute 0.34 K/mm3 (0.00-0.031); Lymphocytes Absolute Auto 0.43 K/mm3 (0.9-3.2); Lymphocytes Percent Auto 2.5 % (18.3-44.2); Mean Corpuscular HGB Conc 34.8 g/dl (32-36); Mean Corpuscular Hemoglobin 32.8 pg (26-34); Mean Corpuscular Volume 94.3 fl (80-100); Mean Platelet Volume 10.1 fl (7.4-10.4); Monocytes Percent Auto 11.3 % (2.6-8.5); Neutrophils Absolute Auto 13.9 K/mm3 (1.3-6.7); Neutrophils Percent Auto 80.4 % (45.5-73.1); Platelet Count Result 313 k/mm3 (150-375); Red Blood Count 4.57 M/mm3 (4.2-5.4); White Blood Count 17.3 K/mm3 (4.5-10.0)
[2022-01-06] MEDS: SODIUM CHLORIDE 0.9% IV 1,000 ML 999 ML IV CONT (08:37)
[2022-01-06] MEDS: MORPHINE SULFATE (*CRX) 4 MG/ML INJ IV PUSH (08:37)
[2022-01-06] MEDS: ONDANSETRON INJ 4 MG/2 ML VIAL IV PUSH (08:37)
[2022-01-06 08:41] LABS: Alanine Aminotransferase 53 U/L (6-35); Albumin Level 4.5 g/dL (3.5-5.1); Alkaline Phosphatase 107 U/L (38-126); Anion Gap 7 mmol/L (8-16); Aspartate Amino Transferase 46 U/L (14-36); Bilirubin,Total 0.3 mg/dL (0.2-1.3); Blood Urea Nitrogen 20 mg/dL (7-17); Calcium 9.1 mg/dL (8.4-10.2); Carbon Dioxide 26 mmol/L (22-30); Chloride 104 mmol/L (98-107); Estimated Glomerular Filt Rate 51; Glucose 177 mg/dL (65-110); Lipase 71 U/L (23-300); Potassium 4.2 mmol/L (3.4-5.0); Sodium 137 mmol/L (137-145)
[2022-01-06 08:53] LABS: Bacteria Urine 2+ /hpf; Mucus Urine Rare /lpf; Squamous Epithelial Cell Urine Rare /hpf (Few)
--- NOTE | 2022-01-06 08:54 | PC.NURSE ---
Pt to CT scan via stretcher at this time.
[2022-01-06 09:13] LABS: Add Urine Microscopic? YES; Appearance Urine Clear (Clear); Bilirubin Urine Negative (Negative); Blood Urine 2+ (Negative); Color Urine Yellow (Yellow); Glucose Urine UA Negative (Negative); Ketones Urine Negative (Negative); Leukocyte Esterase Ur Trace LEU/UL (Negative); Nitrate Urine Negative (Negative); Protein Urine Negative (Negative); Specific Grav Ur 1.015 (1.001-1.035); Urobilinogen Urine 0.2 mg/dL (<2.0)
[2022-01-06] MEDS: HYDROmorphone HCL INJ (*CRX) 1 MG/ML SYR IV PUSH (10:04)
--- NOTE | 2022-01-06 10:29 | ED.GENADULT ---
HPI - General Adult General Chief complaint: Abdominal Pain Stated complaint: nausea and vomiting with LLQ abdominal pain Time Seen by Provider: 01/06/22 08:14 History of Present Illness HPI narrative: Patient is a 56-year-old female who presents ER with lower abdominal pain as well as nausea and vomiting. Began today. Sudden onset. Initially thought it may be similar to diverticulitis but this occurred much quicker. No diarrhea or constipation. Denies fevers or chills or sweats. Has found no alleviating factors. No history of kidney stones. Related Data Home Medications Medication Instructions Recorded Confirmed Gilenya 0.5 mg PO DAILY 12/11/20 01/06/22 duloxetine 60 mg capsule,delayed 60 mg PO BID 12/11/20 01/06/22 release modafinil 100 mg PO PRN PRN TIREDNESS 12/11/20 01/06/22 modafinil 200 mg tablet 100 mg PO DAILY 12/11/20 01/06/22 cholecalciferol (vitamin D3) 50 50 mcg PO DAILY 01/06/22 01/06/22 mcg (2,000 unit) capsule (Vitamin D3) gabapentin 300 mg capsule 300 mg PO BID 01/06/22 01/06/22 multivitamin with minerals-folic 1 tablet PO DAILY 01/06/22 01/06/22 acid 200 mcg chewable tablet (Adult Multivitamin Gummies) Allergies Allergy/AdvReac Type Severity Reaction Status Date / Time Penicillins Allergy Mild Hives Verified 01/06/22 13:17 plastic tape AdvReac Rash Uncoded 01/06/22 08:19 Review of Systems Review of Systems: All systems reviewed & are unremarkable except as noted in HPI and below Constitutional: Constitutional: Denies chills and Denies fever(s) Gastrointestinal: Gastrointestinal: Reports abdominal pain, Denies constipation, Denies diarrhea, Reports nausea and Reports vomiting Genitourinary: Genitourinary: Denies nocturia, Denies dysuria and Denies flank pain Neurologic: Denies focal weakness and Denies numbness PMFSH Past Medical History Medical History Anxiety Diverticulitis (~2016) Endometriosis Left ureteral stone Migraines Multiple sclerosis (~2004) Obesity Obstructive sleep apnea Intermittent CPAP use Transaminitis Chronic--suspected due to hepatic steatosis Urge urinary incontinence Surgical History Surgical History History of appendectomy History of bilateral carpal tunnel release History of colonoscopy History of tubal ligation (09/17/03) S/P laparoscopic procedure (~2000) Endometriosis Family History Family History Mother Patient's mother is in good health 75 years old Father Heart transplant recipient Social History Social History Social History: Her of 22 years. She does not have any children. 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 She continues to smoke a half a pack of cigarettes per day. She started smoking in her late teens or early 20s. She denies any alcohol use or illicit substance use. She currently does not have a primary care physician. She reports that she is no longer seeing Dr. Ku. Code status: Full code Surrogate decision maker: Naren () Smoking packs per day: 0.5 Smoking cigarettes per day: 10.0 Years smoked: 30 Smoking pack-years: 15.00 Smoking status: Current every day smoker Tobacco type: cigarettes Alcohol intake: never Substance use: never Gender identity (if verbalized by the patient): Female Spiritual care concerns: No Exam Narrative: GENERAL: Uncomfortable-appearing, obese, and in mild distress. HEAD: Normocephalic, atraumatic. ENT: Mucous membranes moist. CHEST: Clear to auscultation. No respiratory distress. HEART: Regular rate and rhythm. Normal peripheral pulses. ABDOMEN: Soft, tender palpation to left upper and left lower quadrant, nondistended, normal active bowel so
--- NOTE | 2022-01-06 10:45 | PC.NURSE ---
Pt 82% on room air following pain admin, placed on 2 L NC O2 and is now 95%.
[2022-01-06] MEDS: LACTATED RINGERS 1,000 ML 30 ML IV CONT (13:00)
[2022-01-06 13:07] LABS: Glucose Point of Care 204 mg/dl (65-105)
--- NOTE | 2022-01-06 13:39 | WPDURCON ---
Assessment and Plan Assessment and plan (1) Left ureteral stone: Code(s): N20.1 - Calculus of ureter Status: Acute Plan 56-year-old female with left obstructing UPJ stone as well as left nonobstructing renal stone. -plan cystoscopy and left ureteral stent insertion. The patient understands the risks benefits alternatives. She understands she will need definitive stone management at a later date. Risks of procedure include not limited to infection, bleeding, pain, injury stone stricture, inability of the stent were discussed patient she agrees to proceed. -patient will be discharged home with empiric antibiotics. -will plan outpatient definitive stone management Urology Consult Note HPI Date Seen: 01/06/22 Requesting Physician: Vanessa Otero MD Primary Care Provider: [facility] PHYSICIAN Consult Narrative Narrative: Therese Chan is a 56 year old female who presented to the emergency room with left-sided flank pain. She was found to have obstructing left UPJ stone as well as a nonobstructing left renal stone. Urology was called to evaluate the patient PMFSH Past Medical History Medical History (Updated 01/06/22 @ 13:41 by Vanessa Otero MD) Anxiety Diverticulitis (~2016) Endometriosis Left ureteral stone Migraines Multiple sclerosis (~2004) Obesity Obstructive sleep apnea Intermittent CPAP use Transaminitis Chronic--suspected due to hepatic steatosis Urge urinary incontinence Surgical History Surgical History History of appendectomy History of bilateral carpal tunnel release History of colonoscopy History of tubal ligation (09/17/03) S/P laparoscopic procedure (~2000) Endometriosis Family History Family History Mother Patient's mother is in good health 75 years old Father Heart transplant recipient Social History Social History Social History: Her of 22 years. She does not have any children. 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 She continues to smoke a half a pack of cigarettes per day. She started smoking in her late teens or early 20s. She denies any alcohol use or illicit substance use. She currently does not have a primary care physician. She reports that she is no longer seeing Dr. Ku. Code status: Full code Surrogate decision maker: Naren () Smoking packs per day: 0.5 Smoking cigarettes per day: 10.0 Years smoked: 30 Smoking pack-years: 15.00 Smoking status: Current every day smoker Tobacco type: cigarettes Alcohol intake: never Substance use: never Gender identity (if verbalized by the patient): Female Spiritual care concerns: No Meds Home Medications and Allergies Home Medications Medication Instructions Recorded Confirmed Type Gilenya 0.5 mg PO DAILY 12/11/20 01/06/22 History duloxetine 60 mg capsule,delayed 60 mg PO DAILY 12/11/20 01/06/22 History release modafinil 200 mg PO QAM 12/11/20 01/06/22 History modafinil 200 mg tablet 200 mg PO DAILY 12/11/20 01/06/22 History tolterodine 4 mg capsule,extended 4 mg PO DAILY 12/11/20 01/06/22 History release 24 hr blood sugar diagnostic (OneTouch #30 multiple units 12/13/20 Rx Verio test strips) blood-glucose meter (OneTouch #1 pkg 12/13/20 Rx Verio Flex Meter) lancets 30 gauge (OneTouch Delica #30 multiple units 12/13/20 Rx Plus Lancet) Allergies Allergy/AdvReac Type Severity Reaction Status Date / Time Penicillins Allergy Mild Hives Verified 01/06/22 13:17 plastic tape AdvReac Rash Uncoded 01/06/22 08:19 Vital Signs Vital Signs - 24 hr 01/06/22 08:14 01/06/22 08:18 01/06/22 09:11 Temperature 37.3 C Pulse Rate 102 H 96 Respiratory Rate 14 17 Blood Pressure 176/94 H 172/87 H Pulse
--- NOTE | 2022-01-06 13:42 | WPDHPUPDATE1 ---
History and Physical Update Update Date/Time: 01/06/22 13:42 History and Physical has been reviewed, including an updated exam of the patient. There are NO changes in the patient's condition. Risks, benefits, and alternatives have been discussed and questions answered. Patient agrees to proceed with procedure.
--- NOTE | 2022-01-06 13:52 | WPDANESEPPF ---
Anes - Initial Pre Proc Eval Procedure: Operation Date: 01/06/22 14:45 Proposed Procedures p Cystoscopy,Left Stent Placement - Vanessa Otero MD Date/Time: 01/06/22 13:52 Surgeon: Vanessa Otero MD Pre Op Diagnosis: nausea and vomiting with LLQ abdominal pain Patient Data Age: 56 Gender: F Height: 1.57 m Weight: 135.5 kg Last Vital Signs Temp 36.2 C L 01/06/22 13:05 Pulse 95 01/06/22 13:05 Resp 20 01/06/22 13:05 BP 136/58 L 01/06/22 13:05 Pulse Ox 96 01/06/22 13:05 O2 Del Method Room Air 01/06/22 13:05 Allergies Allergy/AdvReac Type Severity Reaction Status Date / Time Penicillins Allergy Mild Hives Verified 01/06/22 13:17 plastic tape AdvReac Rash Uncoded 01/06/22 08:19 Home Medications Medication Instructions Recorded Confirmed Type Gilenya 0.5 mg PO DAILY 12/11/20 01/06/22 History duloxetine 60 mg capsule,delayed 60 mg PO BID 12/11/20 01/06/22 History release modafinil 100 mg PO PRN PRN TIREDNESS 12/11/20 01/06/22 History modafinil 200 mg tablet 100 mg PO DAILY 12/11/20 01/06/22 History blood sugar diagnostic (OneTouch #30 multiple units 12/13/20 Rx Verio test strips) blood-glucose meter (OneTouch #1 pkg 12/13/20 Rx Verio Flex Meter) lancets 30 gauge (OneTouch Delica #30 multiple units 12/13/20 Rx Plus Lancet) cholecalciferol (vitamin D3) 50 50 mcg PO DAILY 01/06/22 01/06/22 History mcg (2,000 unit) capsule (Vitamin D3) gabapentin 300 mg capsule 300 mg PO BID 01/06/22 01/06/22 History multivitamin with minerals-folic 1 tablet PO DAILY 01/06/22 01/06/22 History acid 200 mcg chewable tablet (Adult Multivitamin Gummies) Laboratory Tests 01/06/22 01/06/22 01/06/22 08:20 08:20 08:41 WBC 17.3 K/mm3 H K/mm3 (4.5-10.0) RBC 4.57 M/mm3 M/mm3 (4.2-5.4) Hgb 15.0 g/dL g/dL (12.0-15.0) Hct 43.1 % % (37.0-47.0) MCV 94.3 fl fl (80-100) MCH 32.8 pg pg (26-34) MCHC 34.8 g/dl g/dl (32-36) RDW 13.0 % % (11.5-14.5) Plt Count 313 k/mm3 k/mm3 (150-375) MPV 10.1 fl fl (7.4-10.4) Immature Gran % (Auto) 2.0 % H % (0-0.5) Neut % (Auto) 80.4 % H % (45.5-73.1) Lymph % (Auto) 2.5 % L % (18.3-44.2) [place] % (Auto) 11.3 % H % (2.6-8.5) Eos % (Auto) 3.1 % % (0-4.4) Baso % (Auto) 0.7 % % (0.2-1.2) Lymph # (Auto) 0.43 K/mm3 L K/mm3 (0.9-3.2) [place] # (Auto) 2.0 K/mm3 H K/mm3 (0.1-0.6) Eos # (Auto) 0.5 K/mm3 H K/mm3 (0-0.3) Baso # (Auto) 0.1 K/mm3 K/mm3 (0.0-0.1) Abs Immat Gran (auto) 0.34 K/mm3 H K/mm3 (0.00-0.031) Absolute Neuts (auto) 13.9 K/mm3 H K/mm3 (1.3-6.7) Absolute Nucleated RBC 0.0 K/mm3 K/mm3 (0.0-0.012) Nucleated RBC % 0.0 % % (0.0-0.2) Sodium 137 mmol/L mmol/L (137-145) Potassium 4.2 mmol/L mmol/L (3.4-5.0) Chloride 104 mmol/L mmol/L (98-107) Carbon Dioxide 26 mmol/L mmol/L (22-30) Anion Gap 7 mmol/L L mmol/L (8-16) BUN 20 mg/dL H mg/dL (7-17) Creatinine 1.10 mg/dL H mg/dL (0.7-1.0) Estim Creat Clear Calc Not Reportable Estimated GFR 51 L (59 - ) Glucose 177 mg/dL H mg/dL (65-110) POC Capillary Glucose Calcium 9.1 mg/dL mg/dL (8.4-10.2) Total Bilirubin 0.3 mg/dL mg/dL (0.2-1.3) AST 46 U/L H U/L (14-36) ALT 53 U/L H U/L (6-35) Alkaline Phosphatase 107 U/L U/L (38-126) Total Protein 8.0 g/dL g/dL (6.3-8.2) Albumin 4.5 g/dL g/dL (3.5-5.1) Lipase 71 U/L U/L (23-300) Urine Color Yellow (Yellow) Urine Appearance Clear (Clear) Urine pH 6.0 (5.0-9.0) Ur Specific [place] 1.015 (1.001-1.035) Urine Protein
[2022-01-06] MEDS: LIDOCAINE HCL 2% GEL UROJET 10 ML PKG MUCOUS MEM (15:15)
--- NOTE | 2022-01-06 15:30 | W.PM.PROC2 ---
Procedure Note - Detailed Date of Procedure 01/06/22 Pre-op Diagnosis Left ureteral stone Post-op Diagnosis Same Procedure Performed Cystoscopy, left ureteral stent insertion, left retrograde pyelogram Surgeon Vanessa Otero MD Description of Procedure Informed consent was obtained. Patient is never. She is given preoperative IV antibiotics. You just anesthesia. A 22 F cystoscope was inserted in through the urethra into the bladder. The bladder was normal appearance without mucosal abnormalities. Plain film revealed a left kidney with persistent contrast from her recent CT scan, there was moderate left hydronephrosis, stone was visible at the left UPJ. Cannulated the left ureteral orifice and retrograde pyelogram was performed confirming left hydronephrosis. Airway was advanced beyond level the stone. Over the wire a 4.8 F variable length stent with a curl in the renal pelvis and curl in the bladder was placed. Lidocaine was instilled. Patient was awakened and taken recovery stable condition Complications No immediate complications Condition Stable Disposition PACU
[2022-01-06 15:39] LABS: Glucose Point of Care 156 mg/dl (65-105)
--- NOTE | 2022-01-06 16:11 | SUR.PHASEII ---
RN left a message for Dr. Otero to call back in regards to oxybutynin.
[2022-01-06] MEDS: oxyCODONE HCL (*CRX) 5 MG TAB IR PO (16:25)
--- NOTE | 2022-01-06 17:25 | SUR.PHASEII ---
RN called pharmacy at 4:49pm to see if prescriptions were sent there for patient post-surgery. There were no prescriptions sent so RN called Dr. Otero again on his cell and left a message.
--- NOTE | 2022-01-06 17:49 | SUR.PHASEII ---
1750 PT MEETS ANESTHESIA DISCHARGE CRITERIA. PT DRESSED & WAITING FOR HER RIDE HOME.
== END 2022-01-06 18:00 | disposition home or self-care (01) ==
LOC: ANHED 10:37 → ANHSURGERY 10:49
PROVIDERS: Emergency Provider Emergency Medicine; Visit Provider Urology
PROC: (CPT 52352; principal; 2022-01-06 14:45)
DX: N13.2 Hydronephrosis with renal and ureteral calculous obstruction (principal); G47.33 Obstructive sleep apnea (adult) (pediatric); R74.01 Elevation of levels of liver transaminase levels; F41.9 Anxiety disorder, unspecified; G35 Multiple sclerosis; N39.41 Urge incontinence; E66.01 Morbid (severe) obesity due to excess calories; Z68.43 Body mass index [BMI] 50.0-59.9, adult; F17.210 Nicotine dependence, cigarettes, uncomplicated; Z79.899 Other long term (current) drug therapy
CPT/HCPCS: 52332; 36415; 74177; 74420; 80053; 81001; 82948; 83690; 85025; 96361; 96374; 96375; 99285; A9270; C1769; C1887; C2617; J0696; J1170; J2270; J2405; J2704; J3010; J7030; J7120; Q9966; Q9967

== ENCOUNTER 2022-01-10 09:16 | Outpatient (CLI) | payer MEDICARE, SELFPAY ==
--- NOTE | 2022-01-10 09:29 | ECG_ITS ---
Measurements Intervals [place] Rate: 89 P: 60 RI: 152 QRS: 42 QRSD: 94 T: 61 QT: 372 QTc: 454 Interpretive Statements SINUS RHYTHM NO PREVIOUS ECG AVAILABLE FOR COMPARISON Electronically Signed On 01-10-2022 10:57:11 CDT by Junaid Lazar M.D.
[2022-01-10 10:13] LABS: INR 0.9; Prothrombin Time 11.6 Seconds (11.1-14.7)
== END 2022-01-10 09:17 | disposition home or self-care (01) ==
LOC: ANHSURGERY 09:24
PROVIDERS: Visit Provider Urology
DX: Z01.818 Encounter for other preprocedural examination (principal); F17.200 Nicotine dependence, unspecified, uncomplicated; N20.1 Calculus of ureter
CPT/HCPCS: 36415; 85610; 85730; 87086; 93005

== ENCOUNTER 2022-01-13 02:35 | Day surgery (SDC) | payer MEDICARE, SELFPAY ==
--- NOTE | 2022-01-09 12:02 | PC.NURSE ---
Report to the Outpatient Waiting Room, entrance under the green pavilion located off [facility], at time __0900 on date _01/13/22 . OR Time: __1100 . - You and your visitor will be asked a series of questions to screen for COVID 19 for your protection. - Only one visitor is allowed at this time. - The patient visitor is requested to leave or wait in car when not with patient. - A mask is required within the hospital. Patients may have clear liquids (water, carbonated beverages, clear teas, apple juice) until 3 hours prior to surgery with a maximum of 20 ounces. - No food from midnight until time of surgery - Infants may have breast milk until 4 hours before surgery, infant formula 6 hours prior to surgery. - Children will be allowed to drink immediately following surgery. If applicable, please bring a bottle or sippy cup to assist with drinking. Juice, water, soda, and popsicles are readily available. For infants on formula, please bring formula the day of surgery. Pacifiers are allowed. Take the following medications with a SIP of water the morning of surgery: __DULOXETINE,GABAPENTIN,SULFAMETHOXAZOLE,,GILENYA,PAIN PILL IF NEEDED Medications to discontinue per physician __ALL VITAMINS AND SUPPLEMENTS 3 DAYS PRR OP Date to take last dose__01/09/22 Please no make-up, nail macanese, hairspray, perfume, deodorant, or body powder the day of surgery. No jewelry (including any body piercings) or valuables the day of surgery, leave them at home. Please take a shower or bath the night before, or the morning of, surgery with an antibacterial soap. Wear comfortable, loose fitting clothing. Children are encouraged to wear pajamas. - Jewelry must be removed prior to entering the operating room. Rings and piercings that are not removed may be cut off. - The hospital will not accept responsibility for valuables. - Please leave all valuables, including medications, at home the day of surgery. If you are going home after surgery, a licensed industrial tractor driver must drive you home. - NO public transportation without another adult. - We recommend that an adult stay with you for 24 hours following discharge. - We also recommend that you do not drive, make important decision, drink alcoholic beverages, or take any drugs that were not prescribed by your health care provider for at least 24 hours after your discharge time. For Pediatric surgeries, we recommend two adults accompany the child home (only one inside the building at this time). Follow any additional instructions given to you from your surgeon. If you or anyone in your household have experienced Covid symptoms in the past week, please notify your surgeon or the nurse liaison at the phone number below for possible testing. Telephone instructions given to __PATIENT and asked if any additional questions and then verbalized understanding. Patient advised to call surgeon office or pre surgery nurse liaison [phone] if any additional questions.
[2022-01-09 12:13] VITALS: BMI 49.4
[2022-01-13] VITALS (8 sets, daily range): BP systolic 126–168; BP diastolic 64–101; PULSE 76–93; RESP 16–20; TEMP 36.2–37.3; O2SAT 94–100
--- NOTE | ~2022-01-13 | XR_ITS ---
XR abdomen/kub 1V 01/13/2022 09:08 Indication: Renal stones. ESWL. Procedure: KUB Comparison: No prior studies for comparison. Findings: There is a left internal ureteral stent present. There are faint left renal stones. Bowel g as pattern nonobstructive. No acute osseous abnormality. Lung bases are unremarkable. Impression: 1: Left nephrolithiasis. Reviewed, dictated and finalized at location A. Impression: 1: Left nephrolithiasis.
[2022-01-13] MEDS: LACTATED RINGERS 1,000 ML 30 ML IV CONT (09:50)
--- NOTE | 2022-01-13 09:58 | WPDANESEPPF ---
Anes - Initial Pre Proc Eval Procedure: Operation Date: 01/13/22 11:00 Proposed Procedures p Left Extracorporeal Shock Wave Lithotripsy, - Henrique Gallagher MD s Possible Cystoscopy, Possible Left Stent Removal - Henrique Gallagher MD Date/Time: 01/13/22 09:58 Surgeon: Henrique Gallagher MD Pre Op Diagnosis: left ureteral stone Patient Data Age: 56 Gender: F Height: 1.57 m Weight: 122.5 kg Allergies Allergy/AdvReac Type Severity Reaction Status Date / Time Penicillins Allergy Mild Hives Verified 01/13/22 09:20 plastic tape AdvReac Mild Rash Uncoded 01/13/22 09:20 Home Medications Medication Instructions Recorded Confirmed Type Gilenya 0.5 mg PO DAILY 12/11/20 01/13/22 History duloxetine 60 mg capsule,delayed 60 mg PO BID 12/11/20 01/13/22 History release modafinil 200 mg tablet 100 mg PO DAILY 12/11/20 01/13/22 History blood sugar diagnostic (OneTouch #30 multiple units 12/13/20 Rx Verio test strips) blood-glucose meter (OneTouch #1 pkg 12/13/20 Rx Verio Flex Meter) lancets 30 gauge (OneTouch Delica #30 multiple units 12/13/20 Rx Plus Lancet) cholecalciferol (vitamin D3) 50 50 mcg PO DAILY 01/06/22 01/13/22 History mcg (2,000 unit) capsule (Vitamin D3) gabapentin 300 mg capsule 300 mg PO BID 01/06/22 01/13/22 History docusate sodium 100 mg tablet 100 mg PO BID CONSTIPATION 01/09/22 01/13/22 History hydrocodone 5 mg-acetaminophen 325 1 tablet PO Q6H PRN Pain 01/09/22 01/13/22 History mg tablet tiapnocg-vnj-rcqzj ac 400 1 tablet PO DAILY 01/09/22 01/13/22 History mcg-calcium carb 500 mg-vit K1 20 mcg tablet (Women's 50 Plus Multivitamin) oxybutynin chloride 5 mg tablet 5 mg PO TID PRN Bladder Spasms 01/09/22 01/13/22 History sulfamethoxazole 500 mg tablet 500 mg PO BID 01/09/22 01/13/22 History Patient hx anesthesia problems: none Family hx anesthesia problems: none Results Review: All pre-operative results and documents have been reviewed as part of the pre-operative evaluation. [facility] Past Medical History Medical History Anxiety Diverticulitis (~2016) Endometriosis Left ureteral stone Migraines Multiple sclerosis (~2004) Obesity Obstructive sleep apnea Intermittent CPAP use Transaminitis Chronic--suspected due to hepatic steatosis Urge urinary incontinence Surgical History Surgical History History of appendectomy History of bilateral carpal tunnel release History of colonoscopy History of tubal ligation (09/17/03) S/P laparoscopic procedure (~2000) Endometriosis Family History Family History Mother Patient's mother is in good health 75 years old Father Heart transplant recipient Social History Social History Social History: Her of 22 years. She does not have any children. 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 She continues to smoke a half a pack of cigarettes per day. She started smoking in her late teens or early 20s. She denies any alcohol use or illicit substance use. She currently does not have a primary care physician. She reports that she is no longer seeing Dr. Ku. Code status: Full code Surrogate decision maker: Naren () Smoking packs per day: 1 Smoking cigarettes per day: 20.0 Years smoked: 37 Smoking pack-years: 37.00 Smoking status: Current every day smoker Tobacco type: cigarettes Alcohol intake: never Substance use: never Living arrangements: with family Gender identity (if verbalized by the patient): Female Spiritual care concerns: No Anes - Eval Final PreProcedure Day of Procedure 01/13/22 09:58 Patient weight: morbidly obese Heart: regula
--- NOTE | 2022-01-13 10:03 | WPDHPUPDATE1 ---
History and Physical Update Update Date/Time: 01/13/22 10:03 History and Physical has been reviewed, including an updated exam of the patient. There are NO changes in the patient's condition. Risks, benefits, and alternatives have been discussed and questions answered. Patient agrees to proceed with procedure. Proceed with lithotripsy left renal calculus
[2022-01-13] MEDS: ceFAZolin 3 GM/D5W 100 ML 100 ML IVPB (10:23)
--- NOTE | 2022-01-13 10:54 | W.PM.PROC2 ---
Procedure Note - Detailed Date of Procedure 01/13/22 Pre-op Diagnosis Left renal calculus Post-op Diagnosis Same Procedure Performed For lithotripsy of left renal calculus Surgeon Henrique Gallagher MD Anesthesia General Description of Procedure Patient is taken the operative suite correctly identified. Stone is faintly visible around the coil of the stent. This area was then localized in both planes. Two thousand five hundred shocks were given to this area. Patient tolerated procedure well without any complications and was taken recovery stable condition. She will follow-up with Dr. Otero in 7-10 days with a KUB. She may require a renal CT if she has not passed any fragments and the stone is difficult to see Drains Yes Packing No Pathology None sent Complications No immediate complications Condition Stable Disposition PACU
== END 2022-01-13 12:40 | disposition home or self-care (01) ==
PROVIDERS: Visit Provider Urology
PROC: (CPT 50590; principal; 2022-01-13 11:00)
DX: N13.2 Hydronephrosis with renal and ureteral calculous obstruction (principal); G47.33 Obstructive sleep apnea (adult) (pediatric); G35 Multiple sclerosis; F41.9 Anxiety disorder, unspecified; E66.01 Morbid (severe) obesity due to excess calories; Z68.42 Body mass index [BMI] 45.0-49.9, adult
CPT/HCPCS: 50590; 36415; 74018; 85610; 85730; 87086; 93005; J0690; J1100; J2405; J2704; J7120

== ENCOUNTER 2022-01-25 09:09 | Outpatient (CLI) | payer MEDICARE, SELFPAY ==
--- NOTE | ~2022-01-25 | XR_ITS ---
XR abdomen/kub 1V DATE: 01/25/2022 09:24 INDICATION: Left ureteral stone; status post lithotripsy TECHNIQUE: AP projection, 2 views COMPARISON: 01/13/2022 KUB 01/06/2022 left retrograde pyelogram with stent 01/06/[address] abdomen pelvis FINDINGS: Left internal urinary stent is present, the proximal pigtail overlying the left renal pelvi s, the distal pigtail overlying the lower mid urinary bladder. There are calcifications overlying the lower pole left kidney, including a larger calcification measu ring approximately 5 x 8.5 mm. Small faint calcified calculi along the distal ureter cannot be excluded. Noncontrast CT abdomen pelvis examination would be more sensitive for detection of urinary tract calc ottoniel. IMPRESSION: Left internal urinary stent Lower pole left renal calcified calculi Cannot exclude faint small calcified calculi along the distal left ureter. Noncontrast CT abdomen pel vis would be more sensitive and accurate. Reviewed, dictated and finalized at Location A. Reviewed, dictated and finalized at location A. IMPRESSION: Left internal urinary stent Lower pole left renal calcified calculi Cannot exclude faint small calcified calculi along the distal left ureter. Nonc ontrast CT abdomen pelvis would be more sensitive and accurate.
== END 2022-01-25 09:10 | disposition home or self-care (01) ==
LOC: ANHIMG 09:12
PROVIDERS: Visit Provider Urology
DX: N20.1 Calculus of ureter (principal); Z96.0 Presence of urogenital implants; N20.0 Calculus of kidney
CPT/HCPCS: 74018

== ENCOUNTER 2022-03-13 10:55 | Outpatient (CLI) | payer MEDICARE, SELFPAY ==
[2022-03-13 11:40] LABS: Anion Gap 3 mmol/L (8-16); Blood Urea Nitrogen 16 mg/dL (7-17); Calcium 9.2 mg/dL (8.4-10.2); Carbon Dioxide 31 mmol/L (22-30); Chloride 99 mmol/L (98-107); Estimated Glomerular Filt Rate > 60; Glucose 209 mg/dL (65-110); Sodium 133 mmol/L (137-145)
== END 2022-03-13 10:56 | disposition home or self-care (01) ==
PROVIDERS: Anesthesiology; Visit Provider Urology
DX: N20.1 Calculus of ureter (principal); E11.9 Type 2 diabetes mellitus without complications
CPT/HCPCS: 36415; 80048; 87086

== ENCOUNTER 2022-03-15 00:14 | Day surgery (SDC) | payer MEDICARE, SELFPAY ==
[2022-03-10 14:37] VITALS: BMI 48.4
--- NOTE | 2022-03-10 15:01 | PC.NURSE ---
Report to the Outpatient Waiting Room, entrance under the green pavilion located off [facility], at time 12:30 on date 03/15/22. OR Time: 2:30. - You and your visitor will be asked to self-screen and do not enter if you have any COVID symptoms. - Only one visitor and NO children visitors are allowed at this time. - The patient visitor is requested to leave or wait in car when not with patient due to restrictions. - A mask is required within the hospital. Patients may have clear liquids (water, carbonated beverages, clear teas, apple juice) until 3 hours prior to surgery (11:30) with a maximum of 20 ounces. - No food from midnight until time of surgery Take the following medications with a SIP of water the morning of surgery: DULOXETINE, GABAPENTIN, GILENYA, TRAMADOL (IF NEEDED) Medications to discontinue per physician: VITAMINS/SUPPLEMENTS Date to take last dose: 03/11/22 Please no make-up, nail [place], hairspray, perfume, deodorant, or body powder the day of surgery. No jewelry (including any body piercings) or valuables the day of surgery, leave them at home. Please take a shower or bath the night before, or the morning of, surgery with an antibacterial soap. Wear comfortable, loose fitting clothing. - Jewelry must be removed prior to entering the operating room. Rings and piercings that are not removed may be cut off. - The hospital will not accept responsibility for valuables. - Please leave all valuables, including medications, at home the day of surgery. If you are going home after surgery, a licensed street flusher driver must drive you home. - NO public transportation without another adult. - We recommend that an adult stay with you for 24 hours following discharge. - We also recommend that you do not drive, make important decision, drink alcoholic beverages, or take any drugs that were not prescribed by your health care provider for at least 24 hours after your discharge time. Follow any additional instructions given to you from your surgeon. If you or anyone in your household have experienced Covid symptoms in the past week, please notify your surgeon or the nurse liaison at the phone number below for possible testing. Telephone instructions given to PT - ANTOINE BOOTH and asked if any additional questions and then verbalized understanding. Patient advised to call surgeon office or pre surgery nurse liaison [phone] if any additional questions.
[2022-03-15] VITALS (7 sets, daily range): BP systolic 130–150; BP diastolic 70–92; PULSE 72–92; RESP 14–20; TEMP 36.2–36.4; O2SAT 94–97
--- NOTE | ~2022-03-15 | XR_ITS ---
EXAMINATION: XR retrograde pyelo w/stent LT DATE: 03/15/2022 16:25 CDT INDICATION: RETRO/STENT . TECHNIQUE: 12 fluoroscopic images of the abdomen were obtained during left retrograde pyelography wit h stent placement performed by the surgeon. I was not present in the operating room. Fluoroscopy expo sure time was 109.7 seconds. Cumulative dose was 2.98 mGy2. COMPARISON: X-ray abdomen 01/25/2022 FINDINGS: Catheter and wire access to the left collecting system. Mild calyceal clubbing. Stent placement, prox imal coil in the upper pole calyx, distal coil in the bladder. IMPRESSION: Fluoroscopic documentation of left retrograde pyelography and stent placement. Please refer to the op erative note for complete procedural details. Reviewed, dictated and finalized at location K. IMPRESSION: Fluoroscopic documentation of left retrograde pyelography and stent placement. Please refer to the operative note for complete procedural details.
[2022-03-15] MEDS: LACTATED RINGERS 1,000 ML 30 ML IV CONT (13:26)
[2022-03-15] MEDS: ACETAMINOPHEN 500 MG TABLET 1000 MG PO (13:40)
[2022-03-15 13:45] LABS: Glucose Point of Care 168 mg/dl (65-105)
--- NOTE | 2022-03-15 15:40 | WPDHPUPDATE1 ---
History and Physical Update Update Date/Time: 03/15/22 15:40 History and Physical has been reviewed, including an updated exam of the patient. There are NO changes in the patient's condition. Risks, benefits, and alternatives have been discussed and questions answered. Patient agrees to proceed with procedure.
--- NOTE | 2022-03-15 15:40 | PM.IMHP ---
H&P: HPI History of Present Illness Date/Time: 03/15/22 15:40 Chief Complaint: Residual left-sided stones PMFSH Past Medical History Medical History Anxiety Diverticulitis (~2016) Endometriosis Left ureteral stone Migraines Multiple sclerosis (~2004) Obesity Obstructive sleep apnea Intermittent CPAP use Transaminitis Chronic--suspected due to hepatic steatosis Urge urinary incontinence Surgical History Surgical History History of appendectomy History of bilateral carpal tunnel release History of colonoscopy History of tubal ligation (09/17/03) S/P laparoscopic procedure (~2000) Endometriosis Family History Family History Mother Patient's mother is in good health 75 years old Father Heart transplant recipient Social History Social History Social History: Her of 22 years. She does not have any children. 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 She continues to smoke a half a pack of cigarettes per day. She started smoking in her late teens or early 20s. She denies any alcohol use or illicit substance use. She currently does not have a primary care physician. She reports that she is no longer seeing Dr. Ku. Code status: Full code Surrogate decision maker: Naren () Smoking packs per day: 1 Smoking cigarettes per day: 20.0 Years smoked: 37 Smoking pack-years: 37.00 Smoking status: Current every day smoker Tobacco type: cigarettes Alcohol intake: never Substance use: never Substance use type: does not use Living arrangements: with family Gender identity (if verbalized by the patient): Female Spiritual care concerns: No Meds Home Medications and Allergies Home Medications Medication Instructions Recorded Confirmed Type Gilenya 0.5 mg PO DAILY 12/11/20 03/15/22 History duloxetine 60 mg capsule,delayed 60 mg PO BID 12/11/20 03/15/22 History release modafinil 200 mg tablet 100 mg PO DAILY 12/11/20 03/10/22 History blood sugar diagnostic (OneTouch #30 multiple units 12/13/20 Rx Verio test strips) blood-glucose meter (OneTouch #1 pkg 12/13/20 Rx Verio Flex Meter) lancets 30 gauge (OneTouch Delica #30 multiple units 12/13/20 Rx Plus Lancet) cholecalciferol (vitamin D3) 50 50 mcg PO DAILY 01/06/22 03/10/22 History mcg (2,000 unit) capsule (Vitamin D3) gabapentin 300 mg capsule 300 mg PO BID 01/06/22 03/15/22 History docusate sodium 100 mg tablet 100 mg PO BID PRN Constipation 01/09/22 03/10/22 History hsioschv-jrx-sjzpp ac 400 1 tablet PO DAILY 01/09/22 03/10/22 History mcg-calcium carb 500 mg-vit K1 20 mcg tablet (Women's 50 Plus Multivitamin) solifenacin 10 mg tablet 10 mg PO DAILY 03/10/22 03/10/22 History tramadol 50 mg tablet 50 mg PO Q6H PRN PAIN 03/10/22 03/10/22 History Allergies Allergy/AdvReac Type Severity Reaction Status Date / Time Penicillins Allergy Mild Hives Verified 03/15/22 14:29 plastic tape AdvReac Mild Rash Uncoded 03/10/22 14:31 Vital Signs Vital Signs - 24 hr 03/15/22 13:22 Temperature 36.2 C L Pulse Rate 92 Respiratory Rate 14 Blood Pressure 144/76 H Pulse Oximetry 97 Oxygen Delivery Room Air Exam Narrative: Patient is awake and alert. She is obese. She has no acute distress. Her breathing is unlabored her abdomen is soft nontender nondistended Assessment and Plan Assessment and plan (1) Left ureteral stone: Code(s): N20.1 - Calculus of ureter Status: Acute Assessment and Plan: This is a 56-year-old lady with a history of left-sided nephrolithiasis status post ureteral stenting subsequent as well. Patient has residual left-sided stones pres
--- NOTE | 2022-03-15 15:49 | WPDHPUPDATE1 ---
History and Physical Update Update Date/Time: 03/15/22 15:49 Plan cystoscopy, left ureteroscopy, left retrograde pyelogram, stone extraction, left ureteral stent exchange, holmium laser lithotripsy History and Physical has been reviewed, including an updated exam of the patient. There are NO changes in the patient's condition. Risks, benefits, and alternatives have been discussed and questions answered. Patient agrees to proceed with procedure.
[2022-03-15] MEDS: ceFAZolin 3 GM/D5W 100 ML 100 ML IVPB (15:57)
[2022-03-15] MEDS: LIDOCAINE HCL 2% GEL UROJET 10 ML PKG MUCOUS MEM (16:57)
--- NOTE | 2022-03-15 17:12 | W.PM.PROC2 ---
Procedure Note - Detailed Date of Procedure 03/15/22 Pre-op Diagnosis left ureteral stone Post-op Diagnosis Same Procedure Performed cystoscopy, left ureteroscopy, left retrograde pyelogram, stone extraction, left ureteral stent exchange, holmium laser lithotripsy Surgeon Vanessa Otero MD Description of Procedure Informed consent was obtained. Patient taken the operating. She was given preoperative IV antibiotics. She just anesthesia. We shot a 20 F cystoscope through urethra into bladder. We grasped the pre-existing left ureteral stent is pulled out to the urethral meatus. A wire was then passed through the existing stent. We then dilated with a 10 coaxial dilator to 2 where access. We then placed a [id number] access sheath over the superstiff wire using fluoroscopic guidance. We then advanced the flexible ureteroscope through the sheath into the kidney inspection revealed a collection of stones in the midpole and lower pole. Mid pole stones were grasped and removed. Multiple stone were also grasped and removed except for the largest are residual stone that measures approximately 6mm. The larger stone was then moved to the upper pole and using laser fiber we fragmented the stone to multiple fragments. Fragments removed and sent as specimen. We then again inspected carefully and there was no significant residual stone fragments. A retrograde pyelogram performed again noted each calyx and there were no significant residual stone fragments. We then inspected the length of the ureter there is no stone and no injury. We then placed a 6 F variable length stent with a curl in the upper pole and a curl in the bladder. Bladder was emptied. Lidocaine was instilled. Patient awakened and taken to PACU in stable condition Complications No immediate complications Condition Stable Disposition PACU
[2022-03-15] MEDS: fentaNYL CITRATE INJ (*CRX) 100 MCG/2 ML VIAL 25 MCG IV PUSH (17:19)
[2022-03-15 17:23] LABS: Glucose Point of Care 158 mg/dl (65-105)
[2022-03-15] MEDS: oxyCODONE HCL (*CRX) 5 MG TAB IR PO (17:52)
[2022-03-15] MEDS: ONDANSETRON INJ 4 MG/2 ML VIAL IV PUSH (18:00)
== END 2022-03-15 18:44 | disposition home or self-care (01) ==
PROVIDERS: Visit Provider Urology
PROC: (CPT 52352; principal; 2022-03-15 14:30)
DX: N20.1 Calculus of ureter (principal); G35 Multiple sclerosis; J44.9 Chronic obstructive pulmonary disease, unspecified; R74.01 Elevation of levels of liver transaminase levels; F41.9 Anxiety disorder, unspecified; E66.01 Morbid (severe) obesity due to excess calories; Z68.43 Body mass index [BMI] 50.0-59.9, adult; F17.210 Nicotine dependence, cigarettes, uncomplicated
CPT/HCPCS: 52356; 74420; 82365; 82948; 88300; A9270; C1769; C1894; C2617; J0690; J2250; J2405; J2704; J3010; J7120; Q9966

== ENCOUNTER → 2022-05-18 14:57 | Outpatient (CLI) | payer MEDICARE, SELFPAY ==
--- NOTE | ~2022-05-18 | MR_ITS ---
EXAMINATION: MR cervical spine wo con DATE: 05/18/2022 15:36 INDICATION: Cervical radicular pain. TECHNIQUE: Magnetic resonance imaging (MRI) of the cervical spine was performed without intravenous c ontrast. Sequences included sagittal T2-weighted FSE, sagittal T2-weighted FS FSE, sagittal T1-weight ed FSE, axial MERGE, and axial T2-weighted FSE. COMPARISON: None FINDINGS: There is 5 degrees dextrocurvature of cervicothoracic spine. There is kyphosis of cervical spine. Vertebral body heights are normal. There is moderately decreased disc height at C6-C7. The spi nal cord signal intensity is normal. The following disc levels are specifically discussed: C2-C3: The disc does not extend beyond the endplate margin. There is no uncovertebral joint osteoarth ritis. There is mild right and moderate left facet joint osteoarthritis. There is no neural foraminal stenosis. There is no central canal stenosis. C3-C4: The disc does not extend beyond the endplate margin. There is mild left uncovertebral joint os teoarthritis. There is mild bilateral facet joint osteoarthritis. There is mild left neural foraminal stenosis. There is no central canal stenosis. C4-C5: There is a left central protrusion. There is mild bilateral uncovertebral joint osteoarthritis . There is moderate right facet joint osteoarthritis. There is mild right neural foraminal stenosis. There is mild central canal stenosis with ventral indentation of the spinal cord. C5-C6: The disc is bulging. There is mild right and moderate left uncovertebral joint osteoarthritis. There is mild right facet joint osteoarthritis. There is mild bilateral neural foraminal stenosis. T here is mild central canal stenosis with ventral indentation of spinal cord. C6-C7: The disc is bulging. There is moderate bilateral uncovertebral joint osteoarthritis. There is no facet joint osteoarthritis. There is mild bilateral neural foraminal stenosis. There is mild centr al canal stenosis. C7-T1: The disc does not extend beyond the endplate margin. There is mild bilateral uncovertebral emmanuel nt osteoarthritis. There is mild bilateral facet joint osteoarthritis. There is mild bilateral neural foraminal stenosis. There is no central canal stenosis. IMPRESSION: 1. Moderate cervical spondylosis. Reviewed, dictated and finalized at location A.
== END ==
PROVIDERS: PCP Internal Medicine; Visit Provider Nurse Practitioner Family
DX: M54.12 Radiculopathy, cervical region (principal); M43.02 Spondylolysis, cervical region
CPT/HCPCS: 72141